=== PATIENT | male | born 1975 | race Caucasian/White ===

== ENCOUNTER 2020-06-16 08:23 | Outpatient (RCR) | payer OTHER | END 2020-08-13 | disposition home or self-care (01) | LOC: WSOH | DX: M77.11 Lateral epicondylitis, right elbow (principal); F17.210 Nicotine dependence, cigarettes, uncomplicated; Z98.890 Other specified postprocedural states; Y99.0 Civilian activity done for income or pay | CPT/HCPCS: J1030 ==